=== PATIENT | female | born 1940 | race Two or more races ===

== ENCOUNTER 2018-09-06 10:40 | Outpatient (CLI) | payer OTHER | END 2018-09-06 10:46 | disposition home or self-care (01) | LOC: SONOGRAMA 10:40 | DX: E04.1 Nontoxic single thyroid nodule (principal) ==

== ENCOUNTER 2021-03-18 08:25 | Outpatient (CLI) | payer OTHER | END 2021-03-18 08:29 | disposition home or self-care (01) | LOC: SONOGRAMA 08:25 | PROVIDERS: ATTEND Pathology Anatomic Pathology & Clinical Pathology | DX: E04.1 Nontoxic single thyroid nodule (principal) ==